=== PATIENT | male | born 1960 | race Caucasian/White ===

== ENCOUNTER 2025-01-11 12:13 | Emergency (ER) | payer MEDICARE, MEDICAID ==
[~2025-01-11] VITALS: Ht 185.4 cm; Wt 83.9 kg
[2025-01-11 12:20] VITALS: TEMP 98.2
[2025-01-11 12:46] LABS: PLATELET COUNT (AUTO) 295 K/uL (150-450); RED BLOOD CELL COUNT(AUTO) 4.31 MIL/uL (4.5-6.0); RED CELL DISTRIBUTION WIDTH 14.4 % (11.5-15.0); WHITE BLOOD COUNT (AUTO) 8.0 K/uL (4.3-11.0)
[2025-01-11] MEDS ORDERED: AZITHROMYCIN 250 MG TABLET ONE (12:47)
[2025-01-11] MEDS: AZITHROMYCIN 250 MG TABLET PO ONE (12:51)
[2025-01-11] MEDS ORDERED: ALBUTEROL FS 2.5 MG/0.5 ML VIAL.NEB ONE (12:56)
[2025-01-11 12:58] LABS: CALCIUM, SERUM 8.9 mg/dL (8.5-10.1); CREATININE 1.0 mg/dL (0.6-1.3); SODIUM SERUM 131 mmol/L (136-145); UREA NITROGEN, BLOOD 29 mg/dL (7-18)
[2025-01-11 13:01] VITALS: O2SAT 97
[2025-01-11] MEDS: ALBUTEROL FS 2.5 MG/0.5 ML VIAL.NEB NEB ONE (13:01)
[2025-01-11 13:07] LABS: ASPARTATE AMINOTRANSFERASE 17 U/L (15-37); NT-PRO BNP 87 pg/mL (0-125); TOTAL PROTEIN, SERUM 7.0 g/dL (6.4-8.2)
[2025-01-11 13:16] VITALS: O2SAT 100
[2025-01-11] MEDS ORDERED: AZIT250T13 PO (14:13)
[2025-01-11] MEDS ORDERED: ALBU18HF2 INH (14:13)
[2025-01-11] MEDS ORDERED: PRED20TA PO (14:13)
[2025-01-11 14:31] VITALS: BP 127/69; O2SAT 98
== END 2025-01-11 14:31 | disposition home or self-care (01) ==
LOC: ER 12:15
DX: J44.1 Chronic obstructive pulmonary disease with (acute) exacerbation (principal); Z79.52 Long term (current) use of systemic steroids; Z20.822 Contact with and (suspected) exposure to COVID-19
CPT/HCPCS: 99285; 71045; 87426; 93005; 87804 ×2; 85025; 80048; 80076; 36415; 84484 ×2; 83880; 94640; J7512